=== PATIENT | male | born 1950 | race African-American/Black ===

== ENCOUNTER 2021-09-16 01:49 | Inpatient (IN) | payer MEDICARE ==
[2021-09-15 23:00] VITALS: BP 156/58
[2021-09-16] VITALS (12 sets, daily range): BP systolic 106–162; BP diastolic 29–96
[~2021-09-16] VITALS: Ht 167.6 cm; Wt 67.6 kg
[2021-09-16] MEDS ORDERED: NON FORMULARY PATIENT HOME MED XX SCH (03:30)
[2021-09-16] MEDS: HYDRALAZINE HCL 25MG TABLET PO SCH ×3 (06:09→21:53)
[2021-09-16 06:38] LABS: HEMATOCRIT. 25.7 % (42.0-52.0); HEMOGLOBIN. 8.5 g/dL (14.0-18.0); MEAN CORPUSCULAR HEMOGLOBIN 32.3 pg (28.0-32.0); MEAN CORPUSCULAR VOLUME 97.9 fL (80.0-94.0); MEAN PLATELET VOLUME 9.8 fl (7.4-10.4); PLATELET 135 x1000/uL (130-400); RED BLOOD CELL COUNT 2.62 mill/uL (4.7-6.1); RED CELL DISTRIBUTION WIDTH 14.9 % (11.6-14.6)
[2021-09-16 07:20] LABS: INR 1.1; PARTIAL THROMBOPLASTIN TIME 30.2 sec (23.4-31.0); PROTHROMBIN TIME 12.1 sec (9.6-11.0)
[2021-09-16] MEDS: CARVEDILOL 3.125 MG TABLET PO SCH ×2 (08:48→21:54)
[2021-09-16] MEDS: FAMOTIDINE 20MG TABLET PO SCH (08:48)
[2021-09-16] MEDS: ASPIRIN 81MG TABLET PO SCH (08:48)
[2021-09-16] MEDS: ISOSORBIDE DINITRATE 10MG TABLET PO SCH ×3 (08:49→17:37)
[2021-09-16 13:51] LABS: HEPATITIS B SURFACE ANTIGEN NEGATIVE
[2021-09-16 14:04] LABS: PLATELET ESTIMATE NORMAL
[2021-09-16] MEDS: ENOXAPARIN 30MG/0.3ML SYR SUBCUT SCH (17:38)
[2021-09-16] MEDS: CEFTRIAXONE 2 G in DEXTROSE 5% WATER 50 ML IV SCH (17:48)
[2021-09-16] MEDS ORDERED: CEFTRIAXONE 2 G PREMIX 50 ML IV SCH (18:30)
[2021-09-16] MEDS: ATORVASTATIN CALCIUM 40MG TABLET PO SCH (21:54)
[2021-09-17] VITALS (19 sets, daily range): BP systolic 109–158; BP diastolic 60–86
[2021-09-17] MEDS: HYDRALAZINE HCL 25MG TABLET PO SCH ×3 (05:04→22:42)
[2021-09-17 07:03] LABS: BASOPHILS % 0.1 % (0.0-2.0); EOSINOPHILS % 0.7 % (0.0-5.0); HEMATOCRIT. 25.2 % (42.0-52.0); HEMOGLOBIN. 8.6 g/dL (14.0-18.0); LYMPHOCYTES % 7.3 % (20.0-50.0); MEAN CORPUSCULAR HEMOGLOBIN 33.4 pg (28.0-32.0); MEAN CORPUSCULAR VOLUME 98.4 fL (80.0-94.0); MEAN PLATELET VOLUME 9.5 fl (7.4-10.4); MONOCYTES % 8.8 % (2.0-8.0); NEUTROPHILS % 83.1 % (40.0-76.0); PLATELET 126 x1000/uL (130-400); RED BLOOD CELL COUNT 2.57 mill/uL (4.7-6.1); RED CELL DISTRIBUTION WIDTH 18.3 % (11.6-14.6)
[2021-09-17] MEDS: ASPIRIN 81MG TABLET PO SCH (09:00)
[2021-09-17] MEDS: FAMOTIDINE 20MG TABLET PO SCH (09:00)
[2021-09-17] MEDS ORDERED: LIDOCAINE HCL 1% 20ML VIAL (Pyxis) INJ ONE (09:57)
[2021-09-17] MEDS ORDERED: IODIXANOL 320MG/ML 100 ML BOTTLE IV ONE ×2 (09:57→11:16)
[2021-09-17] MEDS ORDERED: PHENYLEPHRINE 100MCG/ML 10ML VIAL (CATH LAB) IV ONE (10:00)
[2021-09-17] MEDS ORDERED: HEPARIN SODIUM 1,000 UNIT/1ML VIAL IV ONE (10:00)
[2021-09-17] MEDS ORDERED: NITROGLYCERIN 50MCG/ML 10ML VIAL (CATH LAB) IV ONE (10:00)
[2021-09-17] MEDS ORDERED: MIDAZOLAM HCL 2 MG/2 ML VIAL ONE (10:08)
[2021-09-17] MEDS ORDERED: FENTANYL CITRATE/PF 50MCG/ML 2ML VIAL ONE (10:09)
[2021-09-17] MEDS ORDERED: IOHEXOL-300 100 ML BOTTLE ONE (10:55)
[2021-09-17] MEDS ORDERED: CLOPIDOGREL 75MG TABLET ONE (11:48)
[2021-09-17] MEDS: ISOSORBIDE DINITRATE 10MG TABLET PO SCH ×3 (12:11→16:11)
[2021-09-17] MEDS: CARVEDILOL 3.125 MG TABLET PO SCH ×2 (12:13→21:11)
[2021-09-17] MEDS: ENOXAPARIN 30MG/0.3ML SYR SUBCUT SCH (15:41)
[2021-09-17] MEDS: CEFTRIAXONE 2 G in DEXTROSE 5% WATER 50 ML IV SCH (17:07)
[2021-09-17] MEDS: ATORVASTATIN CALCIUM 40MG TABLET PO SCH (21:11)
[2021-09-18] VITALS (9 sets, daily range): BP systolic 107–151; BP diastolic 54–88
[2021-09-18] MEDS: HYDRALAZINE HCL 25MG TABLET PO SCH ×2 (06:33→14:00)
[2021-09-18] MEDS: FAMOTIDINE 20MG TABLET PO SCH (08:11)
[2021-09-18] MEDS: ISOSORBIDE DINITRATE 10MG TABLET PO SCH ×2 (08:11→13:00)
[2021-09-18] MEDS: CARVEDILOL 3.125 MG TABLET PO SCH (08:12)
[2021-09-18] MEDS ORDERED: CLOPIDOGREL 75MG TABLET PO SCH (09:00)
[2021-09-18] MEDS ORDERED: ASPIRIN 81MG TABLET PO SCH (09:00)
== END 2021-09-18 15:30 | disposition home health service (06) | DRG 853 ==
LOC: 3WST 01:49
PROVIDERS: ADMIT Hospitalist; ATTEND Hospitalist
PROC: 5A1D70Z Performance of Urinary Filtration, Intermittent, Less than 6 Hours Per Day (ICD-10-PCS; 2021-09-16)
PROC: 027034Z Dilation of Coronary Artery, One Artery with Drug-eluting Intraluminal Device, Percutaneous Approach (ICD-10-PCS; principal; 2021-09-17)
PROC: B41FYZZ Fluoroscopy of Right Lower Extremity Arteries using Other Contrast (ICD-10-PCS; 2021-09-17)
PROC: B211YZZ Fluoroscopy of Multiple Coronary Arteries using Other Contrast (ICD-10-PCS; 2021-09-17)
PROC: 4A023N7 Measurement of Cardiac Sampling and Pressure, Left Heart, Percutaneous Approach (ICD-10-PCS; 2021-09-17)
PROC: 5A1D70Z Performance of Urinary Filtration, Intermittent, Less than 6 Hours Per Day (ICD-10-PCS; 2021-09-18)
DX: A41.9 Sepsis, unspecified organism (principal); I21.4 Non-ST elevation (NSTEMI) myocardial infarction; J96.91 Respiratory failure, unspecified with hypoxia; N18.6 End stage renal disease; I50.21 Acute systolic (congestive) heart failure; J18.9 Pneumonia, unspecified organism; I13.2 Hypertensive heart and chronic kidney disease with heart failure and with stage 5 chronic kidney disease, or end stage renal disease; D63.1 Anemia in chronic kidney disease; Z20.822 Contact with and (suspected) exposure to COVID-19; I25.10 Atherosclerotic heart disease of native coronary artery without angina pectoris; Z82.49 Family history of ischemic heart disease and other diseases of the circulatory system; Z99.2 Dependence on renal dialysis; I25.2 Old myocardial infarction; Z86.74 Personal history of sudden cardiac arrest
CPT/HCPCS: 36415; 71045; 80048; 83735; 83880; 84145; 85025; 85347; 86705; 86709; 86803; 87077; 87186; 87340; 87426; 92928; 93005; 93306; 93458; C1725; C1760; C1769; C1874; C1887; C1893; J0696; J1644; J1650; J2250; J2370; J3010; J3490; J7060; Q9967